=== PATIENT | male | born 1950 | race African-American/Black ===

== ENCOUNTER → 2020-08-13 | Outpatient (CLI) | payer MEDICARE, OTHER ==
[~2020-08-13] VITALS: Ht 188 cm; Wt 93.0 kg
[~2020-08-13] MED LIST: ACET-3207 PO; DOCU-275 PO; DOXY-354 PO; TAMS-1 PO
[2020-08-13 11:15] VITALS: BP 128/86
== END | disposition home or self-care (01) ==
LOC: SRCNTR 11:11
PROVIDERS: ATTEND Hospitalist
DX: T14.8XXA Other injury of unspecified body region, initial encounter (principal); I96 Gangrene, not elsewhere classified; X58.XXXA Exposure to other specified factors, initial encounter; Y93.89 Activity, other specified; Y92.89 Other specified places as the place of occurrence of the external cause; Y99.8 Other external cause status
CPT/HCPCS: G0463; Z7500

== ENCOUNTER 2020-09-05 21:04 | Emergency (ER) | payer MEDICARE, OTHER ==
[~2020-09-05] VITALS: Ht 188 cm; Wt 118.2 kg
[2020-09-05] MEDS ORDERED: ASPIRIN 81 MG CHEWABLE TABLET PO ONE (21:45)
[2020-09-05 22:00] LABS: BASOPHILS % (AUTO) 0.7 % (0.0-2.0); EOSINOPHILS % (AUTO) 2.2 % (1.0-6.0); HEMATOCRIT 44.8 % (41-53); HEMOGLOBIN 15.1 g/dL (13.5-17.5); LYMPHOCYTES # (AUTO) 1.7 K/uL (1.0-4.8); MEAN CORPUSCULAR HEMOGLOBIN 29.9 pg (26.0-34.0); MEAN CORPUSCULAR HGB CONC 33.7 G/dL (31.0-37.0); MEAN CORPUSCULAR VOLUME 89 fL (80-100); MONOCYTES # (AUTO) 0.7 K/uL (0.1-1.0); MONOCYTES % (AUTO) 10.6 % (2.0-9.0); NEUTROPHILS # (AUTO) 4.2 K/uL (1.8-7.7); NEUTROPHILS % (AUTO) 61.5 % (40.0-70.0); PLATELET COUNT (AUTO) 273 K/uL (150-450); RED BLOOD CELL COUNT(AUTO) 5.04 MIL/uL (4.50-5.90); RED CELL DISTRIBUTION WIDTH 14.1 % (11.5-14.5)
[2020-09-05 22:35] LABS: ALANINE AMINOTRANSFERASE 19 U/L (12-78); ALBUMIN 3.7 g/dL (3.4-5.0); ALKALINE PHOSPHATASE 96 U/L (46-116); ANION GAP 12 mmol/L (8-16); ASPARTATE AMINOTRANSFERASE 25 U/L (15-37); BILIRUBIN,TOTAL 0.7 mg/dL (0.1-1.0); CALCIUM, TOTAL 9.6 mg/dL (8.8-10.5); CARBON DIOXIDE 24 mmol/L (22-29); CHLORIDE 103 mmol/L (98-107); CREATININE 0.75 mg/dL (0.60-1.30); GLOMERULAR FILTR. RATE CALC > 60 mL/min (>60); GLUCOSE,RANDOM 86 mg/dL (70-110); POTASSIUM 4.1 mmol/L (3.5-5.1); SODIUM SERUM 139 mmol/L (136-145); UREA NITROGEN, BLOOD 16 mg/dL (7-18)
[2020-09-05 23:15] VITALS: BP 143/89
== END 2020-09-05 23:15 | disposition home or self-care (01) ==
LOC: EMS 21:07
DX: R53.1 Weakness (principal); F17.210 Nicotine dependence, cigarettes, uncomplicated
CPT/HCPCS: 93005

== ENCOUNTER → 2021-05-26 | Outpatient (CLI) | payer MEDICARE, OTHER ==
[~2021-05-26] MED LIST changes: +DOCU-270 PO; -DOCU-275 PO
[2021-05-26 10:14] VITALS: BP 122/69
== END | disposition home or self-care (01) ==
LOC: SRCNTR 09:37
PROVIDERS: ATTEND Hospitalist
DX: G89.29 Other chronic pain (principal); M54.9 Dorsalgia, unspecified; M25.559 Pain in unspecified hip; I96 Gangrene, not elsewhere classified; F17.290 Nicotine dependence, other tobacco product, uncomplicated; Z85.46 Personal history of malignant neoplasm of prostate
CPT/HCPCS: G0463; Z7500

== ENCOUNTER → 2021-06-23 | Outpatient (CLI) | payer MEDICARE, OTHER ==
[~2021-06-23] VITALS: Ht 188 cm; Wt 84.0 kg
[~2021-06-23] MED LIST changes: +DEXA4 PO; +GABA-1181 PO; +HYDR-4072 PO; +IBUP-2071 PO; +LEVE10006 PO; +PANT-31 PO; +ZOLP-280 PO
[2021-06-23 11:37] VITALS: BP 90/55
== END | disposition home or self-care (01) ==
LOC: SRCNTR 10:52
PROVIDERS: ATTEND Hospitalist
DX: G89.29 Other chronic pain (principal); M25.559 Pain in unspecified hip; Z85.46 Personal history of malignant neoplasm of prostate; Z72.0 Tobacco use; Z90.49 Acquired absence of other specified parts of digestive tract; Z89.429 Acquired absence of other toe(s), unspecified side
CPT/HCPCS: G0463

== ENCOUNTER → 2021-07-29 | Outpatient (CLI) | payer MEDICARE, OTHER ==
[~2021-07-29] VITALS: Ht 188 cm; Wt 82.8 kg
[~2021-07-29] MED LIST changes: -ACET-3207 PO; -DOCU-270 PO; -DOXY-354 PO
[2021-07-29 10:40] VITALS: BP 118/77
== END | disposition home or self-care (01) ==
LOC: SRCNTR 09:51
PROVIDERS: ATTEND Hospitalist
DX: G89.29 Other chronic pain (principal); M54.89 Other dorsalgia; M25.559 Pain in unspecified hip; Z87.891 Personal history of nicotine dependence; Z90.49 Acquired absence of other specified parts of digestive tract; Z85.46 Personal history of malignant neoplasm of prostate; Z89.419 Acquired absence of unspecified great toe
CPT/HCPCS: G0463

== ENCOUNTER → 2021-08-13 | Outpatient (CLI) | payer MEDICARE, OTHER ==
[2021-08-13 09:10] VITALS: BP 101/75
== END | disposition home or self-care (01) ==
LOC: SRCNTR 08:48
PROVIDERS: ATTEND Hospitalist
DX: G89.29 Other chronic pain (principal); N40.0 Benign prostatic hyperplasia without lower urinary tract symptoms; R53.1 Weakness; R53.83 Other fatigue
CPT/HCPCS: G0463; Z7500

== ENCOUNTER → 2021-09-29 | Outpatient (CLI) | payer MEDICARE, OTHER ==
[~2021-09-29] MED LIST changes: -IBUP-2071 PO; -ZOLP-280 PO
== END | disposition home or self-care (01) ==
LOC: SRCNTR 12:08
PROVIDERS: ATTEND Hospitalist
DX: G89.29 Other chronic pain (principal); N40.0 Benign prostatic hyperplasia without lower urinary tract symptoms; C80.1 Malignant (primary) neoplasm, unspecified; M25.559 Pain in unspecified hip; R56.9 Unspecified convulsions; Z85.46 Personal history of malignant neoplasm of prostate; Z72.0 Tobacco use
CPT/HCPCS: Q3014